=== PATIENT | male | born 1950 | race African-American/Black ===

== ENCOUNTER → 2017-07-03 | Day surgery (SDC) | payer OTHER ==
[2017-07-03 08:20] LABS: MPV 8.5 fL (7.6-11.3)
[2017-07-03 08:34] LABS: Protime INR 1.16
[2017-07-03 08:37] VITALS: BP 137/86; TEMP 97.8; O2SAT 96; BMI 33.3
[2017-07-03 10:38] LABS: Platelet Estimate ADEQ
== END ==
LOC: DS 07:49
PROVIDERS: ATTEND Orthopaedic Surgery Orthopaedic Surgery of the Spine
DX: M48.02 Spinal stenosis, cervical region (principal); I10 Essential (primary) hypertension; Z53.8 Procedure and treatment not carried out for other reasons
CPT/HCPCS: 36415; 85049; 85610; 85730

== ENCOUNTER 2017-07-09 08:30 | Day surgery (SDC) | payer OTHER ==
[2017-07-09 08:46] VITALS: BMI 33.3
--- NOTE | 2017-07-09 11:07 | RAD REPORT ---
EXAM DESCRIPTION: CT - Myelogram C Spine - 07/09/2017 10:46 am CLINICAL HISTORY: Spinal stenosis, upper extremity radiculopathy, patient reports numbness in the up per extremities COMPARISON: Myelogram images same date, cervical spine hand MRI examination August 2016 TECHNIQUE: Axial 2 millimeter thick images were obtained from the skullbase to the T1 level. Sagitta l and coronal reconstruction imaging generated and reviewed. FINDINGS: During the myelogram procedure, spinal stenosis changes were evident at L3-4 and L4-5 leve ls. Lumbar assessment is not complete on the cervical procedure. Cervical bodies are normal in height and alignment. No cervical fracture. No lytic, sclerotic or expa nsile bony destructive process. There are degenerative changes at the dens anterior arch C1 level. Th tolu do not cause any significant encroachment into the central canal. Mastoid air cells are clear. No tonsillar ectopia is seen. Patient has a congenitally small central canal. C2-3 level: No herniation or significant disc bulge identifiable. Midline canal diameter is 10-11 mm. No significant foraminal encroachment. C3-4 level: No herniation seen. Minimal endplate spurring changes are present. Midline thecal sac gildardo meter is 10 mm. Prominent facet joint degenerative change on the left causes mild bony foraminal encr oachment. C4-5 level: Posterior disc bulge and endplate spurring changes partially attenuate the anterior subar achnoid space. Midline diameter is 10 mm. Advanced left-sided facet joint degenerative changes presen t causing moderate foraminal stenosis. Right foraminal encroachment is mild. C5-6 level: No herniation of disc material. No significant disc bulge or endplate spurring. Canal is 11 mm in the midline. No significant degree of foraminal stenosis identified. Facet degenerative claros ges are minimal. C6-7 level: Mild disc bulge and endplate spurring changes are present. Midline canal is 10-11 mm. Exi t foramina do not appear to be stenotic. C7-T1 level: Left-sided facet degenerative changes are present. No significant foraminal stenosis. No central spinal stenosis. No expansile findings of the cord. There is a slightly flattened anterior contour in the mid and uppe r cervical spine at the levels of greatest spondylosis. IMPRESSION: Cervical spondylosis changes are present in this patient with a congenitally small centr al canal. No disc herniation is seen. The spondylosis changes cause borderline to mild canal stenosis at C3-4, C4-5 and C6-7. No critical foraminal stenosis. Foraminal encroachment changes are [id number] on the left at C3 -4, C4-5. Right foraminal encroachment is minimal at C4-5. Overall the examination is not substantially different from the August 2016 MRI study. Spinal stenosis is also suspected at L3-4 and L4-5, observed during the myelogram injection procedure . Lumbar spine is not fully assessed.
--- NOTE | 2017-07-09 11:26 | RAD REPORT ---
EXAM DESCRIPTION: RAD - Myelography C Spine - 07/09/2017 10:27 am CLINICAL HISTORY: Spinal stenosis, neck pain, upper extremity numbness and weakness. COMPARISON: Cervical spine imaging July 2016. TECHNIQUE: The patient presents for myelography and post-myelogram CT imaging of the cervical spine. The patient had no contraindicated allergy or medication history. The patient has been off of aspiri n therapy for least 1 week. The myelogram procedure, risks and alternatives were discussed with the patient in detail. After answ ering all questions, both oral and written consent were obtained. Time out procedure was performed. T he patient was placed in a slight oblique prone position on the fluoroscopic table. L3 access site wa s selected. Skin was prepped and draped in the usual sterile fashion. Skin and deeper tissues were an esthetized with 1% lidocaine. A 22 gauge needle was used to access the thecal sac. Intrathecal placem ent was confirmed approximately 9 mL of Isovue M300 contrast material was instilled into the thecal s ac. The needle was withdrawn and bandage placed to the puncture site. The patient was placed in a sup ine Trendelenburg position to allow slow transfer of contrast into the cervical spine. The patient wa s transferred to CT suite for cross-sectional imaging of the cervical spine. The patient tolerated procedure well without immediate complication. Post-procedure care and precauti on instructions were given to the patient. IMPRESSION: 1. Myelogram procedure was completed without complication. Post-procedure care and preca ution instructions were given to the patient. 2. Myelogram findings are incorporated into the CT cervical spine report.
[2017-07-09 14:18] VITALS: BP 137/95; TEMP 97.9; O2SAT 98
== END 2017-07-09 14:00 | disposition home or self-care (01) ==
LOC: DS 08:30
PROVIDERS: ATTEND Orthopaedic Surgery Orthopaedic Surgery of the Spine
DX: M48.02 Spinal stenosis, cervical region (principal)
CPT/HCPCS: 62302; 72126

== ENCOUNTER 2017-11-14 08:44 | Day surgery (SDC) | payer OTHER ==
--- NOTE | 2017-11-13 15:22 | RAD REPORT ---
EXAM DESCRIPTION: RAD - Chest Pa And Lat (2 Views) - 11/13/2017 3:01 pm CLINICAL HISTORY: preop<Reason For Exam>preop Preop chest, pending abscess removal from soft tissues, smoking history COMPARISON: Chest Pa And Lat (2 Views) dated 03/28/2017; Chest Single View dated 08/15/2015; CHEST SIN GLE VIEW dated 04/28/2014<Comparisons> TECHNIQUE: PA and lateral views of the chest were obtained. FINDINGS: The lungs are clear of an acute infiltrate, mass or failure finding. Lung markings are sim ilar to the comparison. Mediastinal and hilar regions show no interval change. Heart size is normal and central vasculature is within normal limits. No pleural effusion or pneumothorax seen. No acut e bony finding noted. No aortic abnormality. IMPRESSION: No acute cardiopulmonary process. No significant change from comparison.
--- NOTE | 2017-11-13 16:15 | EKG ---
Test Date: 2017-11-13 Test Time: 14:45:47 Wireworker: ANNA MEASUREMENT RESULTS: Intervals: Rate: 69 IL: 206 QRSD: 96 QT: 406 QTc: 435 [place]: P: 47 IL: 206 QRS: -15 T: 10 INTERPRETIVE STATEMENTS: Sinus rhythm with occasional premature ventricular complexes Otherwise normal ECG Compared to ECG 08/15/2015 09:15:23 Aberrant conduction of supraventricular beat(s) no longer present Myocardial infarct finding no longer present Electronically Signed On 11-13-17 16:14:17 CDT by Kosta Ruiz
[2017-11-13 16:25] LABS: Absolute Lymphocytes (CBC) 2.6 K/uL (0.7-4.9); Absolute Monocytes 0.7 K/uL (0.1-1.3); Absolute Neutrophil 4.3 K/uL (1.8-8.0); Eosinophils % 3.5 % (0-4.4); Hematocrit 45.5 % (39.6-49.0); MCH 29.6 pg (27.0-35.0); MCV 87.2 fL (80-100); MPV 8.2 fL (7.6-11.3); Monocytes % 8.6 % (3.3-12.3); RBC Red Blood Cell Count 5.22 M/uL (4.33-5.43)
[2017-11-13 16:53] LABS: BUN Blood Urea Nitrogen 15 mg/dL (7-18); Bicarbonate 28 mmol/L (21-32); Glucose Level 129 mg/dL (74-106); Potassium 4.2 mmol/L (3.5-5.1); Sodium Level 140 mmol/L (136-145)
[2017-11-14] MEDS ORDERED: NA CHLORIDE 0.9% 1,000 ML ONE (09:04)
[2017-11-14] MEDS ORDERED: CEFAZOLIN/SWI 1gm 1 GM/10 ML SYR ONE (09:04)
[2017-11-14] MEDS ORDERED: BUPIVACAINE 0.5% PF 10 ML VIAL ONE (09:08)
[2017-11-14] MEDS ORDERED: MIDAZOLAM HCL 2 MG/2 ML INJ ONE (09:37)
[2017-11-14] MEDS ORDERED: PROPOFOL 200 MG/20 ML VIAL IV ONE (09:37)
[2017-11-14] MEDS ORDERED: FENTANYL CITR 100 MCG/2 ML ONE (09:38)
[2017-11-14] MEDS ORDERED: ONDANSETRON HCL 40 MG/20 ML VIAL ONE (10:18)
[2017-11-14] MEDS ORDERED: MEPERIDINE HCL 50 MG/ML AMP ONE (10:54)
[2017-11-14] MEDS ORDERED: HYDROCODONE/APAP 7.5/325 MG TAB ONE (11:26)
[2017-11-14 12:46] VITALS: BP 115/71; TEMP 97.8; O2SAT 95
--- NOTE | 2017-11-14 21:46 | OP ---
Date of Procedure: 11/14/2017 Surgeon: Niles Rodriguez MD Preoperative Diagnosis: Abscess and cellulitis, left back. Postoperative Diagnosis: Abscess and cellulitis, left back. Procedure: Incision, drainage, and debridement of left back abscess. Estimated Blood Loss: Minimal. Specimen: Pus and cyst contents. Findings: Probably an abscess sebaceous cyst. Anesthesia: General. Complications: None. Disposition: The patient tolerated the procedure in stable condition and was taken to recovery in go od general condition. Procedure In Detail: The patient was brought to the OR and placed in supine position. General anest hesia was begun. Then, the patient was placed in the right lateral position, prepped and draped in t he usual sterile fashion. Marcaine 0.5% was infiltrated locally. Abscess itself was approximately 8 x 6 cm. A 4-cm incision was made. Subcutaneous tissue was divided. Pus under pressure was evacuat ed. Loculation was broken up, and then what appeared to be cyst contents were coming out. This was removed. Curette was used deep in the to the tissues to debride all of the cyst wall as much as safe ly could be. Wound was irrigated. Bleeding was controlled cautery. Wet-to-dry normal saline dressi ng change applied. The patient tolerated the procedure in stable condition and was taken to Recovery in good general condition. Discharge Note: The patient will go to Day Surgery and home when stable. Disposition: Home. Condition: Stable. Discharge Instructions: Resume home medications and diet. Activity as tolerated. No heavy lifting. Remove outer dressing in 2 days in a.m. Wet-to-dry normal saline dressing changes daily. Instruct ed the family how to do it. The patient has antibiotics. Tylenol No. 3 one tablet p.o. q.4 hours p. r.n. pain. Follow up in my office in 2 weeks. Call for appointment. . /MODL Voice ID: [id number] Report ID: [id number]
== END 2017-11-14 12:05 | disposition home or self-care (01) ==
LOC: OR 08:44
PROVIDERS: ATTEND Surgery
PROC: 0J970ZZ Drainage of Back Subcutaneous Tissue and Fascia, Open Approach (ICD-10-PCS; principal; 2017-11-14 10:00)
DX: L02.212 Cutaneous abscess of back [any part, except buttock and flank] (principal); I10 Essential (primary) hypertension; E11.9 Type 2 diabetes mellitus without complications; Z72.0 Tobacco use
CPT/HCPCS: 10060; 36415; 71046; 80048; 82962 ×2; 85025; 87070; 87075; 87205; 88304; 93005; J0690; J2175; J2250; J2405; J3010; J7030

== ENCOUNTER 2020-02-18 10:32 | Observation (INO) | payer OTHER ==
[2020-02-18 11:58] VITALS: BMI 32.8
[2020-02-18] MEDS ORDERED: ONDANSETRON 4 MG/2 ML VIAL IV PRN (11:59)
[2020-02-18] MEDS: NA CHLORIDE 0.9% 1,000 ML IV SCH ×2 (12:00→20:00)
--- NOTE | 2020-02-18 12:09 | ER ---
Nurse's Notes [facility] Name: Prem West Jr Age: 69 yrs Sex: Male : 1950 Arrival Date: 02/18/2020 Time: 10:[address] Private MD: Jerardo Means Diagnosis: Unspecified cirrhosis of liver;Dehydration;Acute Enteritis ED Course: 02/17 10:40 Patient arrived in ED. ag5 10:40 Jerardo Means MD is Private Physician. ag5 11:30 Mohini Alexis, GABY is Primary Nurse. rb3 12:03 Jerardo Means MD is Hospitalizing Provider. aa5 Administered Medications: No medications were administered Outcome: 12:07 Decision to Hospitalize by Provider. aa5 22:15 Patient left the ED. sg Signatures: Chas Mustafa RN RN sg Ivana Henderson RN RN aa5 Paolo Martin ag Mohini Alexis, RN RN rb3
[2020-02-18] MEDS ORDERED: NA CHLORIDE 0.9% 1,000 ML ONE ×2 (13:23→22:12)
[2020-02-18 13:42] LABS: Urine Blood 2+ (NEG); Urine Glucose NEGATIVE (NEG); Urine Protein 2+ (NEG); Urine Specific Gravity >1.030 (1.005-1.030); Urine pH 5.5 (5.0-7.0)
[2020-02-18 14:21] LABS: Protime INR 1.31
[2020-02-18 14:22] LABS: Absolute Lymphocytes (CBC) 1.1 K/uL (0.7-4.9); Basophils % 1.2 % (0-1.3); Hematocrit 37.8 % (39.6-49.0); Lymphocytes % 16.9 % (15.3-44.8); MPV 7.5 fL (7.6-11.3); RBC Red Blood Cell Count 4.35 M/uL (4.33-5.43)
[2020-02-18 14:27] LABS: Albumin 2.8 g/dL (3.4-5.0); Bilirubin Direct 0.6 mg/dL (0-0.2); Bilirubin Total 1.1 mg/dL (0.2-1.0); Protein, Total 7.3 g/dL (6.4-8.2)
[2020-02-18] MEDS: MORPHINE 2 MG/ML SYR IV PRN (18:28)
[2020-02-18] MEDS ORDERED: MORPHINE 2 MG/ML SYR ONE (18:31)
[2020-02-18] MEDS ORDERED: NA CHLORIDE 0.9% 250 ML IV PRN (20:54)
[2020-02-18] MEDS: METOPROLOL TAR 50 MG TAB PO SCH (21:00)
[2020-02-18 21:08] LABS: Urine Appearance TURBID; Urine Blood 2+ (NEG); Urine Color DK YELLOW; Urine Glucose NEGATIVE (NEG); Urine Protein 2+ (NEG); Urine Specific Gravity >=1.030 (1.005-1.030); Urine Urobilinogen 0.2 mg/dL (0.2-1.0); Urine pH 5.5 (5.0-7.0)
[2020-02-18 21:12] LABS: Urine Bilirubin NEGATIVE (NEG)
[2020-02-18 21:23] LABS: Urine Bacteria >50 /HPF (NONE SEEN)
[2020-02-18 21:24] LABS: Urine Mucus 2+ /HPF (NONE SEEN)
[2020-02-18 21:28] LABS: Urine Microscopic Reflex NO UMIC
[2020-02-18] MEDS ORDERED: METOPROLOL TAR 50 MG TAB ONE (22:12)
[2020-02-19] MEDS ORDERED: D50W 25 GM/50 ML SYRINGE IV PRN (01:07)
[2020-02-19] MEDS ORDERED: GLUCAGON 1 MG/VIAL IM PRN (01:07)
[2020-02-19] MEDS: NA CHLORIDE 0.9% 1,000 ML IV SCH ×4 (04:00→15:04)
[2020-02-19 05:56] LABS: Basophils % 0.9 % (0-1.3); Hematocrit 35.3 % (39.6-49.0); Lymphocytes % 16.3 % (15.3-44.8); MPV 7.4 fL (7.6-11.3); RBC Red Blood Cell Count 4.09 M/uL (4.33-5.43)
[2020-02-19 06:20] LABS: Albumin 2.6 g/dL (3.4-5.0); Bilirubin Direct 0.7 mg/dL (0-0.2); Bilirubin Total 1.3 mg/dL (0.2-1.0); Potassium 4.3 mmol/L (3.5-5.1); Protein, Total 6.9 g/dL (6.4-8.2)
[2020-02-19] MEDS: INSULIN -REGULAR HUMAN 50 UNIT/0.5 ML ML SQ SCH ×4 (07:30→21:00)
[2020-02-19 08:31] LABS: Blood Morphology Comment NOT SEEN (NOT SEEN); Platelet Estimate DECR; Platelets, Giant FEW; White Blood Cell Scan OK (OK)
[2020-02-19] MEDS: METOPROLOL TAR 50 MG TAB PO SCH ×2 (08:51→21:44)
[2020-02-19 11:50] LABS: C.diff Antigen/Toxin Ag neg : Tox neg (NEG : NEG)
--- NOTE | 2020-02-19 13:40 | EKG ---
Test Date: 2020-02-18 Test Time: 13:40:28 Cokeman: APOLINAR MEASUREMENT RESULTS: Intervals: Rate: 102 [place]: 160 QRSD: 92 QT: 350 QTc: 456 [place]: P: 42 [place]: 160 QRS: -25 T: 58 INTERPRETIVE STATEMENTS: Sinus tachycardia with occasional premature ventricular complexes Otherwise normal ECG Compared to ECG 11/13/2017 14:45:47 Sinus rhythm no longer present Electronically Signed On 02-19-20 13:37:10 PROCESS SAFETY MANAGEMENT ENGINEER by Kosta Ruiz
[2020-02-19] MEDS ORDERED: ENSURE HIGH PROTEIN 237 ML CAN PO PRN (13:51)
--- NOTE | 2020-02-19 14:40 | RAD REPORT ---
EXAM DESCRIPTION: MRI - Mri Abdomen W/Wo Cont - 02/18/2020 9:25 pm CLINICAL HISTORY: Liver Cirrhosis, acute enteritis, abdominal pain, abnormal CT and ultrasound studi es COMPARISON: No comparisons TECHNIQUE: Multiplanar imaging of the liver and upper abdomen performed using T1 weighted, T2 haste fat saturation, T2 imaging, T1 inphase/out of phase imaging and dynamically enhanced postcontrast T1 fat saturation sequencing. 10 minutes and 20 minutes delayed images were obtained. A 20 milliliter Mu ltiHance contrast volume was utilized. FINDINGS: The liver is again noted to be grossly abnormal. The enlarged liver shows numerous variabl y sized rounded hyperintense T2 masses throughout the left lobe and anterior right lobe. Less defined hyperintense T2 signal is scattered throughout the posterior right lobe. The numerous rounded nodula r masses are hypointense on T1 imaging. The entire posterior portion of the right lobe shows diminish ed T1 signal compared to the anterior right lobe and left lobe. In the posteroinferior right lobe the re is a 4 cm area of ill-defined heterogeneous T2 signal and hyperintense T1 signal. T1 signal patter n does not change on fat suppressed sequencing. Similarly, the T1 pattern shows no significant change on the inphase/out of phase sequencing. Post-contrast imaging shows normal enhancement of the background liver parenchyma in the left lobe/an terior right lower lobe regions. The multiple small rounded nodules within this portion of the liver show minimal or low level enhancement compared to the surrounding parenchyma. The posterior right lob e on post-contrast imaging shows a confluence of rounded hypointense masses that show minimal central enhancement. There is enhancing septations or stranding between the multiple confluent nodules. The 4 cm inferior right lobe focus shows no central enhancement and is probably cystic or necrotic tissue . There is thrombosis evident in the small portal vein radicles within the posterior right lobe. No focal splenic abnormality. The pancreas shows no suspicious finding. No biliary tree dilatation. T he gallbladder is absent. The multiple benign renal cysts are present. No acute renal or adrenal abno rmality. No ascites or bulky lymphadenopathy. IMPRESSION: 1. Grossly abnormal liver showing numerous rounded masses throughout the liver with a la rge confluence of masses filling the posterior right lobe. Areas of portal vein thrombosis are seen i n the posterior right lobe. 2. Collective findings are suspicious for multifocal hepatocellular carcinoma.
[2020-02-19] MEDS: MORPHINE 2 MG/ML SYR IV PRN (18:28)
[2020-02-19 22:54] LABS: Urine Appearance CLOUDY; Urine Bilirubin NEGATIVE (NEG); Urine Blood 1+ (NEG); Urine Color DK YELLOW; Urine Glucose NEGATIVE (NEG); Urine Protein 1+ (NEG); Urine Specific Gravity 1.025 (1.005-1.030); Urine Urobilinogen 0.2 mg/dL (0.2-1.0); Urine pH 5.5 (5.0-7.0)
[2020-02-19 23:28] LABS: Urine Amorphous Sediment 1+ /HPF (NONE SEEN); Urine Bacteria >50 /HPF (NONE SEEN); Urine Mucus 3+ /HPF (NONE SEEN)
[2020-02-19 23:29] LABS: Urine Coarse Granular Casts FEW /LPF (NONE SEEN)
--- NOTE | 2020-02-20 00:02 | CON ---
Date of Consultation: 02/19/2020 Reason For Consultation: Dehydration, enteritis, change in bowel, diarrhea, and abnormal liver with possible multifocal hepatocellular carcinoma on MRI imaging. History Of Present Illness: The patient is a 69-year-old male from [place], who presented from primary care physician's office with dehydration, enteritis, change in bowel habits, diarrhea. On workup, he has imaging including ultrasound and CT that revealed abnormality in the [facility] er. There was nondescript subsequent MRI imaging, revealed multifocal hepatocellular carcinoma that is probable. The patient reports losing 15 pounds over the past month without trying. His was concerned and have this evaluated as well. In addition, he notes right upper and right lower quadran t pain has been present recently. He denies any fevers, chills, night sweats, constipation, melena, hematochezia, hematemesis, coffee-grounds emesis, chest pain, short of breath, seizure, or syncope. Past Medical History: Significant for diabetes, hypertension, new diagnosis of cirrhosis of the live r that appears with imaging. Medications: Here in the hospital, he is on glucagon, insulin, Lopressor, morphine, Ensure high-prot ein, Zofran, and sodium chloride IV fluids. Allergies: NKDA. Physical Examination: Vital Signs: The patient is 5 feet 11 inches, 235 pounds, BMI of 32.8 kg/m2. General: He is a mildly obese male, lying in bed, no acute distress. HEENT: Normocephalic, atraumatic. Anicteric. Pupils equal, round, and reactive to light. Orophary nx clear. Neck: Supple. No masses. Respirations: Clear to auscultation bilaterally. Cardiac: Regular rate and rhythm. Gastrointestinal: Positive bowel sounds. Soft, nondistended. Pain in the right upper and right low er quadrant area. No peritoneal Can signs. There was some slight guarding, however. Mildly obes e. Extremities: No clubbing, cyanosis, or edema. 2+ pulses. Neurologic: Alert and oriented x3. Grossly nonfocal. 5/5 motor strength. Sensation intact to ligh t touch. Laboratory Data: The patient has a white count today of 6.0, hemoglobin 11.8 down from 12.3, hematoc rit 35, MCV of 86, platelet count of 106 down from 141 yesterday, polys of 69%, lymphocytes 16%, mono cytes 11%, eosinophils 2%. PT of 15.4, INR of 1.31, PTT of 26.6. Sodium 141, potassium 4.3, chlorid e 111, bicarb 22, BUN of 22, creatinine of 1.45, glucose 97, total bilirubin 1.3, direct bilirubin 0. 7, AST of 399, ALT of 38, alkaline phosphatase 86, total protein 6.9, albumin 3.6. Lipase mildly benson vated at 272, up from 658 yesterday. Urinalysis revealed a 1+ ketones, 2+ blood, positive nitrite, t race leukocyte esterase, less than 5 squamous epithelial cells, 20-50 white blood cells, 10-20 RBCs, 2+ protein. C diff toxin negative. Stool occult blood was negative and no white blood cells seen. CT abdomen and pelvis as well as ultrasound was done and there were nonspecific abnormalities in the liver. CT revealed advanced cirrhotic changes present with heterogeneous attenuation. There was het erogeneity in the inferior right lobe with mixed pattern, cirrhotic parenchyma, fibrosis, regenerativ e nodules, more pronounced originated in inferior right lobe, concerning for possible hepatocellular carcinoma, small amount of ascites, decompressed colon with circumferential thickening. MRI of abdom en reveals grossly abnormal liver showing numerous rounded masses throughout the liver with a large c onfluence of masses in the posterior right lobe, appearance of portal vein thrombosis seen in the pos terior right lobe, collective findings suspicious for multifocal hepatocellular carcinoma or hepatoma . Impression: 1.Possible multifocal hepatocellular carcinoma/hepatoma, positive MRI finding in the inferior right lobe. The patient has lost 15 pounds over the past month with right upper and lower abdominal pain, but he denies any fevers, chills, night sweats. 2.Admission with dehydration, enteritis, change in bowel habits, diarrhea. Stool studies have been negative today. 3.History of diabetes, hypertension, and new diagnosis of cirrhosis of the liver. Recommendations: 1.Check alpha-fetoprotein level. 2.We will consider tertiary center transfer for management of probable hepatocellular carcinoma. Al so will probably need to review CT and MR imaging at a tertiary center, possible reimaging there. We will try to avoid liver biopsy because this may track the hepatocellular carcinoma. If it is indeed present, it would be better to make a diagnosis of alpha-fetoprotein and/or imaging and refer to [facility] for this if surgery is needed. 3.Continue IV fluids. 4.ADA diet. 5.GI Clinic followup. ABHIJEET/CHAMP Voice ID: [id number] Report ID: [id number]
[2020-02-20 05:40] LABS: Basophils % 0.9 % (0-1.3); Hematocrit 35.3 % (39.6-49.0); Lymphocytes % 16.4 % (15.3-44.8); MPV 7.4 fL (7.6-11.3); RBC Red Blood Cell Count 4.05 M/uL (4.33-5.43)
[2020-02-20 06:04] LABS: Potassium 4.2 mmol/L (3.5-5.1)
[2020-02-20] MEDS: INSULIN -REGULAR HUMAN 50 UNIT/0.5 ML ML SQ SCH ×2 (07:30→11:30)
[2020-02-20] MEDS: METOPROLOL TAR 50 MG TAB PO SCH (08:15)
[2020-02-20 08:31] LABS: Albumin 2.4 g/dL (3.4-5.0); Bilirubin Direct 0.6 mg/dL (0-0.2); Bilirubin Total 1.1 mg/dL (0.2-1.0); Protein, Total 6.9 g/dL (6.4-8.2)
--- NOTE | 2020-02-20 08:40 | RAD REPORT ---
EXAM DESCRIPTION: RAD - Shoulder Left 2 View - 02/20/2020 8:13 am CLINICAL HISTORY: Left shoulder pain FINDINGS: No fracture or dislocation is seen. 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 Subchondral cysts are present within the ximena l head
[2020-02-20 11:01] VITALS: O2SAT 95
[2020-02-20 12:58] VITALS: BP 147/76; TEMP 97.8
--- NOTE | 2020-02-20 15:23 | PN ---
Date of Progress Note: 02/20/2020 The patient states he feels somewhat better today. He is holding solids down, tolerating fluids, and urinating without problems. He had no further diarrhea. Still has some abdominal tenderness and pr obable mass in the right upper quadrant. He will be discharged to continue on his hypertension medic ation as he has in the past. Continue to hold his diabetic medication with a plan to send him to a [facility] in [place] early next week. HR/MODL Voice ID: [id number] Report ID: [id number]
--- NOTE | 2020-02-21 03:31 | HP ---
Date of Admission: 02/18/2020 Entrance Complaints: Nausea, vomiting, diarrhea, weight loss, general malaise. History Of Present Illness: The patient has had the above-outlined symptoms for the past couple of w eeks, associated with this, there has been some right upper quadrant discomfort. He says, he has not had any fever or chills, but he definitely anorectic and thinks he has lost approximately 10 pounds over this period of time. He says, when he eats, it comes up right away and the diarrhea has not bee n bloody or mucus as far as he can tell. The patient was placed on antibiotics and symptomatic treat ment as an outpatient. However, his condition continued to deteriorate. He rapidly became dehydrate d over the past few days. It was felt, he would do much better with some IV fluids and further evalu ation. He was therefore admitted. Past History: Patient has history of NIDDM with good control. He states for the past few weeks, he did not measure his blood sugar medication coincides with the present illness, history of hypertensio n, relatively good controlled on various medications, was seen by Cardiology. Social History: The patient does socially drink and states when he was quite a bit younger, he did d rink a lot. He quit smoking, cold turkey a couple of years ago. Family History: Alcoholism as well as CAD. Physical Examination: GENERAL: He is rather uncomfortable appearing elderly male with stable vital signs. HEAD AND NECK: Normocephalic. Pupils equal and reactive to light accommodation. Fundi negative. NECK: Trachea midline. Thyroid not palpable. ENT: Negative. CHEST: Clear to P and A. CARDIOVASCULAR: PMI in the midclavicular line. Heart sounds normal. Peripheral pulses are present and equal bilaterally. ABDOMEN: Slight tenderness in right upper quadrant, questionable fullness in the area. No guarding, rebound, tenderness, or rigidity. Bowel sounds hypoactive. EXTREMITIES: Moderately dehydrated. Good tone and movement bilaterally. Reflexes physiologic. RECTAL: Deferred. Impression: 1.Dehydration and acute enteritis, abdominal pain, unknown etiology. 2.Hypertension, controlled. 3.Trd-stcpsju-rkrcvhjpv diabetes mellitus, controlled. Plan: Patient will be admitted, placed on IV fluids and scheduled for an MRI. Depending on the resu lts, further evaluation and treatment may be indicated. GI consult will also be obtained. In view of the continues symptoms, a CT was done of the abdomen and it did show some cirrhosis, multi nodular, questionable etiology for a growth. HR/MODL Voice ID: [id number]
--- NOTE | 2020-02-21 03:34 | PN ---
Date of Progress Note: 02/19/2020 The patient states, he feels somewhat better after the IV fluids. He is now urinating better and mor e frequently and he states his urine is dark. Still has some right upper quadrant discomfort. Lipas e was also elevated as well as SGOT. Awaiting an MRI. Once the MRI will be taken later today, he can be started on fluids and progressed to a tolerated diet and perhaps be discharged in next day or so. HR/MODL Voice ID: [id number] Report ID: [id number]
[2020-02-23 18:29] LABS: HBsAG Nonreactive (Nonreactive)
[2020-02-23 23:00] LABS: Lactoferrin, Stool <30.0 mcg/mL (<30.0)
[2020-02-25 20:17] LABS: Hep C Virus RNA (PCR)log 5.42 log IU/mL
== END 2020-02-20 14:31 | disposition home or self-care (01) ==
LOC: ER 10:32 → ERHOLD 10:50 → 2ND 22:08
PROVIDERS: ADMIT Family Medicine; ATTEND Family Medicine
DX: K52.9 Noninfective gastroenteritis and colitis, unspecified (principal); E86.0 Dehydration; I10 Essential (primary) hypertension; Z20.828 Contact with and (suspected) exposure to other viral communicable diseases; R93.2 Abnormal findings on diagnostic imaging of liver and biliary tract; E11.9 Type 2 diabetes mellitus without complications; K74.60 Unspecified cirrhosis of liver; E66.9 Obesity, unspecified; Z68.32 Body mass index [BMI] 32.0-32.9, adult; Z87.891 Personal history of nicotine dependence
CPT/HCPCS: 93005; 87088; 87045; 85025 ×3; 81001; 87086; 80048 ×2; 36415 ×3; 82150; 89055; 87177; 82274; 85610; 82947 ×8; 80076 ×3; 87046; 85730; 87209; 87324; 83690 ×3; 83631; 84145; 82105; 87449; 82705; 80074; 73030; U0002; J2270 ×2; G0378 ×4; J7030 ×4; G0379; 81003; 81015; 87493; 87522

== ENCOUNTER 2020-03-14 18:18 | Emergency (ER) | payer OTHER ==
--- OUTSIDE RECORDS SUMMARY | 2020-03-14 18:20 | XMS REPORT | Clinical Summary ---
:1950 Demographics Phone Unavailable Preferred Language Unknown Marital Status Unknown L[employer] Day Affiliation Unknown Race Unknown Ethnic Group Unknown Author Organization [facility] Address [address] [place] [address] Care Team Providers Name Role Phone Unavailable Primary Care Provider Unavailable Allergies Not on File Medications Not on file Active Problems Not on file Encounters Date Type Specialty Care Team Description 02/24/2020 Hospital Encounter Radiology Arthur Kulkarni MD Arrived after 03/14/2019 Social History Tobacco Use Types Packs/Day Years Used Date Never Assessed Sex Assigned at Date Recorded Not on file Last Filed Vital Signs Not on file Plan of Treatment Health Maintenance Due Date Last Done Comments COVID-19 VACCINE (#1) 1966 COLONOSCOPY SCREENING 2000 SHINGLES VACCINES (#1) 2000 65+ PNEUMOCOCCAL VACCINE (1 of 1 - PPSV23) 2015 INFLUENZA VACCINE 10/17/2019 Procedures Procedure Name Priority Date/Time Associated Diagnosis Comme nts MRI ABD/PELVIC Routine 02/18/2020 8:44 PM Result s for this EXTERNAL STUDY FLORIST MANAGER procedure are in the results section. after 03/14/2019 Results MRI Abd/Pelvic External Study (02/18/2020 8:44 PM FLORIST MANAGER) Specimen Narrative Performed At This exam was not acquired at a [facility] facility and has not been [facility] interpreted by a [facility] Provider. T he exam was imported into our imaging system. Performing Organization Address City/State/ZIP Code Phon e Number [facility] [address] [place] [address] after 03/14/2019 Advance Directives For more information, please contact: [phone] Type Date Recorded Patient Literacy Tutor Explanati on Advance Directives, Living Will and Medical Power of Equity Structurer
--- OUTSIDE RECORDS SUMMARY | 2020-03-14 18:20 | XMS REPORT | Continuity of Care Document ---
:1950 Author Organization [facility] t Address [address] [place] [address] [address]. [address] [place] [address] Care Team Providers Name Role Phone Kraig GRIFFIN, Francisco Attending Clinician Unavailable Shad WRIGHT, S. Attending Clinician Problems This patient has no known problems. Allergies, Adverse Reactions, Alerts This patient has no known allergies or adverse reactions. Social History Social Habit Start Date Stop Date Quantity Comments Source Sex Assigned At MD Matias Medications This patient has no known medications. Procedures Procedure Date / Time Performed Performing Clinician Sourc e MRI ABD/PELVIC EXTERNAL 2020-02-18 20:44:00 Arthur Kulkarni STUDY Plan of Care Planned Activity Planned Date Details Comments Source Future Scheduled 2019-10-17 INFLUENZA VACCINE [place] [employer] [facility] 00:00:00 [code = INFLUENZA VACCINE] Future Scheduled 2015 65+ PNEUMOCOCCAL [place] [employer] [facility] 00:00:00 VACCINE (1 of 1 - PPSV23) [code = 65+ PNEUMOCOCCAL VACCINE (1 of 1 - PPSV23)] Future Scheduled 2000 COLONOSCOPY SCREENING Chance padron [employer] Test 00:00:00 [code = COLONOSCOPY SCREENING] Future Scheduled 2000 SHINGLES VACCINES (#1) rima [employer] Test 00:00:00 [code = SHINGLES VACCINES (#1)] Future Scheduled 1966 COVID-19 VACCINE (#1) Chance padron [employer] Test 00:00:00 [code = COVID-19 VACCINE (#1)] Encounters Start End Encounter Admission Attending Care Care Encounter Source Date/Time Date/Time Type Type Clinicians Facility Department ID 2020-02-24 2020-02-24 Outpatient SHAD [facility] [id number] [address] [place] 00:00:00 00:00:00 ARTHUR [place] Method i st Results Test Description Test Time Test Comments Results Result [facility] e Comments MRI Abd/Pelvic 2020-02-24 This exam was not Saúl ston External Study 12:42:02 acquired at a [facility] facility and has not been interpreted by a [employer] Provider. The exam was imported into our imaging system.
[2020-03-14 20:14] LABS: Protime INR 1.29
[2020-03-14 20:15] LABS: Absolute Lymphocytes (CBC) 3.6 K/uL (0.7-4.9); Basophils % 0.4 % (0-1.3); Hematocrit 25.3 % (39.6-49.0); Lymphocytes % 15.3 % (15.3-44.8); MPV 8.3 fL (7.6-11.3)
[2020-03-14] MEDS ORDERED: NA CHLORIDE 0.9% 1,000 ML ONE (20:18)
[2020-03-14] MEDS ORDERED: THIAMINE 200 MG/2 ML INJ ONE (20:18)
[2020-03-14] MEDS ORDERED: FAMOTIDINE 20 MG/2 ML VIAL IV ONE (20:22)
[2020-03-14 20:37] LABS: Albumin 2.5 g/dL (3.4-5.0); Bilirubin Direct 1.6 mg/dL (0-0.2); Magnesium 3.1 mg/dL (1.8-2.4); Potassium 4.7 mmol/L (3.5-5.1); Protein, Total 6.6 g/dL (6.4-8.2); Troponin (Emerg Dept Use Only) 0.06 ng/mL (0.0-0.045)
--- NOTE | 2020-03-14 20:45 | RAD REPORT ---
EXAM DESCRIPTION: CT - Chest Abd Pelvis Wo Con - 03/14/2020 8:19 pm CLINICAL HISTORY: Abdominal distention;Cough COMPARISON: Abdomen Pelvis W Contrast dated 02/17/2020 TECHNIQUE: Axial 5 millimeter thick images of the chest, abdomen and pelvis were obtained without IV contrast. Oral contrast was administered. All CT scans are performed using dose optimization technique as appropriate and may include automated exposure control or mA/KV adjustment according to patient size. FINDINGS: Patchy posterior gutter opacification is favored to be atelectasis over pneumonia. No cavitation or n ew mass component. Small noncalcified nodule medial right base has not changed. No pneumothorax or pl eural effusion. No chest wall mass or abnormal axillary lymphadenopathy seen. Mediastinal and hilar regions show no mass or lymphadenopathy. No significant cardiac finding. Pronounced hepatomegaly is present with heterogeneous attenuation of the hepatic parenchyma. Several low-density masses are present poorly defined and difficult to measure. No substantial change from De ber 2nd comparison study. Spleen and pancreas show no suspicious findings. No biliary tree dilatation. Gallbladder appears be a bsent. No hydronephrosis or suspicious renal mass. Low-density renal masses match up with cysts on prior wen ging. No perinephric stranding. No adrenal abnormalities. Contracted urinary bladder shows no wall th ickening or edema findings. No dilated bowel loops or focal bowel wall thickening. No acute GI process identified. Trace amounts of ascites noted. No free air or pneumatosis. No mass, abscess or bulky lymphadenopathy identifiable. Disc and bone degenerative changes are present. IMPRESSION: CT imaging shows posterior right base opacification more likely atelectasis than pneumon ia. No other significant CT chest finding. Pronounced hepatomegaly with heterogeneous attenuation and probable multiple liver mass lesions poorl y demarcated on this noncontrast study. No hydronephrosis or acute finding. Isodense masses and pyelonephritis are not excluded. No acute GI process seen. There is a minimal amount of ascites and stranding in the peritoneal fat. N o abscess or emergent finding.
[2020-03-14] MEDS ORDERED: METRONIDAZOLE 500mg IVPB 500 MG/100 ML BAG IV ONE (20:52)
--- NOTE | 2020-03-14 20:59 | RAD REPORT ---
EXAM DESCRIPTION: CT - Head Brain Wo Cont - 03/14/2020 8:19 pm CLINICAL HISTORY: CONFUSED, transient alteration of awareness COMPARISON: Facial Bones W Con Mpr dated 08/15/2015 TECHNIQUE: Axial 5 mm thick images of the head were obtained without IV contrast. All CT scans are performed using dose optimization technique as appropriate and may include automated exposure control or mA/KV adjustment according to patient size. FINDINGS: No intracranial hemorrhage, mass, edema or shift of mid-line structures. No acute infarcti on changes seen. No abnormal extra-axial fluid collections. Mild atrophy and mild chronic ischemic ch anges are present. Ventricles are in proportion to any volume loss. Arterial and physiologic calcific ations are present. Mastoid air cells and visualized portions of the paranasal sinuses are clear. No acute bony findings. Focally prominent soft tissue seen posterior right occipital scalp region commonly seen with scalp he matoma. Correlation is needed with any fall history. IMPRESSION: Mild atrophy and chronic ischemic change with no acute intracranial finding. Thickened soft tissues right occipital scalp soft tissues could be hematoma. This needs correlation w ith any fall history.
--- NOTE | 2020-03-14 21:11 | EDPHYS ---
Physician Documentation [facility] Name: Prem West Jr Age: 69 yrs Sex: Male : 1950 Arrival Date: 03/14/2020 Time: 18:21 Bed 15 Private MD: ED Physician Terrell Matias HPI: 03/14 19:52 This 69 yrs old Black Male presents to ER via Wheelchair with complaints of Abnormal ashley Lab Results, Sent By Clary. 19:52 The patient presents with abdominal pain in the upper abdomen, in the lower abdomen. ashley Onset: The symptoms/episode began/occurred 3 day(s) ago. weak, progressive abd pain, new diagnosis of liver cancer. Onset: The symptoms/episode began/occurred 3 day(s) ago. The symptoms do not radiate. Associated signs and symptoms: Pertinent positives: nausea and vomiting, anorexia, headache. Severity of pain: At its worst the pain was moderate in the emergency department the pain is unchanged. 19:54 The patient presents with decreased responsiveness. Possible causes: CVA or TIA, head ashley injury, low blood sugar, sepsis. Associated signs and symptoms: Pertinent positives: abdominal pain, confusion, dizziness, lightheadedness. Current symptoms: In the emergency department the patient's symptoms are unchanged from the initial presentation, despite home interventions. Historical: - Allergies: 18:47 No Known Allergies; ll1 - PMHx: 18:47 Diabetes - NIDDM; Hypertension; liver CA; ll1 - PSHx: 18:47 None; ll1 - Immunization history:: Flu vaccine is up to date. - Social history:: Smoking status: Patient/guardian denies using tobacco, the patient reports quitting approximately 1 years ago. - Family history:: not pertinent. ROS: 19:54 Constitutional: Negative for fever, chills, and weight loss, Eyes: Negative for injury, ashley pain, redness, and discharge, ENT: Negative for injury, pain, and discharge, Neck: Negative for injury, pain, and swelling, Cardiovascular: Negative for chest pain, palpitations, and edema, Respiratory: Negative for shortness of breath, cough, wheezing, and pleuritic chest pain, Back: Negative for injury and pain, : Negative for injury, bleeding, discharge, and swelling, MS/Extremity: Negative for injury and deformity, Skin: Negative for injury, rash, and discoloration, Psych: Negative for depression, anxiety, suicide ideation, homicidal ideation, and hallucinations, Allergy/Immunology: Negative for hives, rash, and allergies, Endocrine: Negative for neck swelling, polydipsia, polyuria, polyphagia, and marked weight changes, Hematologic/Lymphatic: Negative for swollen nodes, abnormal bleeding, and unusual bruising. 19:54 Abdomen/GI: Positive for abdominal pain, abdominal cramps, abdominal distension, of the right upper quadrant, left upper quadrant, right lower quadrant and left lower quadrant. 19:54 Skin: Positive for jaundice, pallor. Exam: 19:55 Constitutional: This is a well developed, well nourished patient who is awake, alert, ashley and in no acute distress. Head/Face: Normocephalic, atraumatic. Eyes: Pupils equal round and reactive to light, extra-ocular motions intact. Lids and lashes normal. Conjunctiva and sclera are non-icteric and not injected. Cornea within normal limits. Periorbital areas with no swelling, redness, or edema. ENT: Nares patent. No nasal discharge, no septal abnormalities noted. Tympanic membranes are normal and external auditory canals are clear. Oropharynx with no redness, swelling, or masses, exudates, or evidence of obstruction, uvula midline. Mucous membranes moist. Neck: Trachea midline, no thyromegaly or masses palpated, and no cervical lymphadenopathy. Supple, full range of motion without nuchal rigidity, or vertebral point tenderness. No Meningismus. Chest/axilla: Normal chest wall appearance and motion. Nontender with no deformity. No lesions are appreciated. Respiratory: Lungs have equal breath sounds bilaterally, clear to auscultation and percussion. No rales, rhonchi or wheezes noted. No increased work of breathing, no retractions or nasal flaring. Back: No spinal tenderness. No costovertebral tenderness. Full range of motion. Male : Normal genitalia with no discharge or lesions. MS/ Extremity: Pulses equal, no cyanosis. Neurovascular intact. Full, normal range of motion. Psych: Awake, alert, with orientation to person, place and time. Behavior, mood, and affect are within normal limits. 19:55 Cardiovascular: Rate: tachycardic, Rhythm: regular, Pulses: Pulses are 4+ in bilateral radial, brachial, femoral, popliteal, posterior tibial and and dorsalis pedis arteries.. Heart sounds: normal, Edema: is not appreciated, JVD: is noted on the right, to 2 cm. 19:55 Respiratory: Exam negative for 19:55 Abdomen/GI: Inspection: distension, Bowel sounds: normal, Palpation: moderate abdominal tenderness, in the right lower quadrant and left lower quadrant, Liver: no appreciated palpable abnormalities, Hernia: not appreciated. 21:10 ECG was reviewed by the Attending Physician. ashley Vital Signs: 18:47 BP 110 / 46; Pulse 111; Resp 18; Temp 98.4; Pulse Ox 100% ; Weight 107.05 kg; Height 5 ll1 ft. 7 in. (170.18 cm); Pain 8/10; 21:00 BP 111 / 42; Pulse 117; Resp 16; Pulse Ox 100% on R/A; jb4 22:00 BP 115 / 53; Pulse 108; Resp 14; Pulse Ox 100% on R/A; jb4 23:00 BP 133 / 56; Pulse 115; Resp 15; Pulse Ox 98% on R/A; jb4 03/15 00:00 BP 113 / 49; Pulse 106; Resp 18; Pulse Ox 95% on R/A; jb4 01:00 BP 127 / 55; Pulse 113; Resp 16; Pulse Ox 95% on R/A; jb4 02:00 BP 127 / 58; Pulse 110; Resp 16; Pulse Ox 96% on R/A; jb4 03/14 18:47 Body Mass Index 36.96 (107.05 kg, 170.18 cm) ll1 MDM: 03/14 19:09 Patient medically screened. ashley 19:57 Differential Diagnosis altered mental status, sepsis. Differential Diagnosis: CVA, ashley electrolyte abnormality, hypoglycemia, intracranial bleed, pneumonia, sepsis, UTI, volume depletion. Differential diagnosis: bowel obstruction, cholecystitis, Cholelithiasis, diverticulitis, gastritis, non-specific abd pain, pancreatitis, Pyelonephritis, Ureterolithiasis. Data reviewed: vital signs, nurses notes, lab test result(s), EKG, radiologic studies, CT scan, plain films. Data interpreted: school lunch monitor: rate is 111 beats/min, rhythm is regular, Pulse oximetry: on room air is 100 %. Test interpretation: by ED physician or midlevel provider: ECG, plain radiologic studies. Counseling: I had a detailed discussion with the patient and/or guardian regarding: the historical points, exam findings, and any diagnostic results supporting the discharge/admit diagnosis, the presence of at least one elevated blood pressure reading (>120/80) during this emergency department visit, lab results, radiology results, the need to transfer to another facility, for higher level of care, [facility] does not immediately have the required specialist. 03/14 19:45 Order name: Basic Metabolic Panel; Complete Time: 21:04 [facility] 03/14 19:45 Order name: CBC with Diff; Complete Time: 22:14 [facility] 03/14 19:45 Order name: LFT's; Complete Time: 21:04 [facility] 03/14 19:45 Order name: Magnesium; Complete Time: 21:04 [facility] 03/14 19:45 Order name: NT PRO-BNP; Complete Time: 21:04 [facility] 03/14 19:45 Order name: PT-INR; Complete Time: 21:04 [facility] 03/14 19:45 Order name: Troponin (emerg Dept Use Only); Complete Time: 21:04 [facility] 03/14 19:45 Order name: Lipase; Complete Time: 21:04 [facility] 03/14 19:45 Order name: AMMONIA; Complete Time: 21:04 [facility] 03/14 19:45 Order name: Urine Culture [facility] 03/14 19:45 Order name: Type And Screen; Complete Time: 22:24 [facility] 03/14 19:45 Order name: Lactate; Complete Time: 21:04 [facility] 03/14 19:45 Order name: Blood Culture Adult (2) [facility] 03/14 19:45 Order name: XRAY Chest (1 view) [facility] 03/14 19:52 Order name: CT Head Brain wo Cont; Complete Time: 21:04 [facility] 03/14 20:11 Order name: Chest Abd Pelvis Wo Con; Complete Time: 21:04 [facility] 03/14 20:19 Order name: Manual Differential; Complete Time: 22:14 [facility] 03/14 20:57 Order name: SARS-COV-2 RT PCR; Complete Time: 21:04 [facility] 03/14 21:11 Order name: ABO/RH no charge; Complete Time: 21:15 [facility] 03/14 22:10 Order name: Slides for Pathologist Review [facility] 03/14 23:20 Order name: Urine Dipstick--Ancillary (enter results) 03/14 23:35 Order name: Lactate Sepsis 2 HR Follow-up [facility] 03/14 19:45 Order name: EKG; Complete Time: 19:47 [facility] 03/14 19:45 Order name: Cardiac monitoring; Complete Time: 19:58 [facility] 03/14 19:45 Order name: EKG - Nurse/Tech; Complete Time: 19:58 [facility] 03/14 19:45 Order name: IV Saline Lock; Complete Time: 19:48 [facility] 03/14 19:45 Order name: Labs collected and sent; Complete Time: 19:48 [facility] 03/14 19:45 Order name: O2 Per Protocol; Complete Time: 19:48 [facility] 03/14 19:45 Order name: O2 Sat Monitoring; Complete Time: 19:48 [facility] 03/14 19:45 Order name: Urine Dipstick-Ancillary (obtain specimen); Complete Time: 23:19 [facility] 03/14 19:45 Order name: Blood Glucose Level; Complete Time: 21:28 [facility] 03/14 20:08 Order name: Sarmiento; Complete Time: 23:19 [facility] EC:10 Rate is 111 beats/min. Rhythm is regular. QRS [place] is Normal. MO interval is normal. ashley QRS interval is normal. QT interval is normal. No Q waves. T waves are Normal. No ST changes noted. Clinical impression: NSR w/ Non-specific ST/T Changes and No evidence of ischemia. Interpreted by me. Reviewed by me. Administered Medications: 20:45 Drug: NS 0.9% 500 ml Route: IV; Rate: bolus; Site: right jugular; jb4 21:15 Follow up: Response: No adverse reaction; IV Status: Completed infusion; IV Intake: jb4 500ml 20:45 Drug: Thiamine 100 mg Route: IV; Rate: bolus; Site: right jugular; jb4 20:50 Follow up: Response: No adverse reaction; IV Status: Completed infusion jb4 20:45 Drug: Pepcid 40 mg Route: IVP; Site: left jugular; jb4 21:15 Follow up: Response: No adverse reaction jb4 20:50 Drug: Flagyl 500 mg Volume: 100 ml; Route: IVPB; Rate: 200 ml/hr; Infused Over: 30 jb4 mins; Site: right jugular; 21:20 Follow up: Response: No adverse reaction; IV Status: Completed infusion; IV Intake: jb4 100ml 21:15 Drug: NS 0.9% 1000 ml Route: IV; Rate: 1 bolus; Site: right jugular; jb4 22:15 Follow up: Response: No adverse reaction; IV Status: Completed infusion; IV Intake: jb4 1000ml 21:23 Not Given (Other Intervention Used): ProTONIX 40 mg IVP once jb4 21:27 Not Given (Duplicate Order): Pepcid 20 mg IVP once jb4 21:32 Not Given (Duplicate Order): D5W with Sodium Bicarbonate 50 mEq/L 1000 ml IV at 125 ashley ml/hr once 21:42 Drug: Zosyn 3.375 grams Route: IVPB; Infused Over: 60 mins; Site: right jugular; jb4 22:42 Follow up: IV Status: Completed infusion jb4 22:45 Drug: D5W with Sodium Bicarbonate 100 mEq/L 1000 ml Route: IV; Rate: 125 ml/hr; Site: [facility] right jugular; 03/15 02:10 Follow up: Response: No adverse reaction; IV Status: Infusion continued upon transfer; [facility] IV Intake: 437ml 03/14 22:45 Drug: Lactulose 20 grams Volume: 30 ml; Route: PO; jb4 23:15 Follow up: Response: No adverse reaction jb4 23:15 Drug: Zofran (Ondansetron) 4 mg Route: IVP; Site: right jugular; jb4 23:45 Follow up: Response: No adverse reaction; Marked relief of symptoms; Nausea is decreasedjb4 23:17 Not Given (Other Intervention Used): Lactulose 60 grams 45 ml PO once jb4 23:20 Not Given (Other Intervention Used): NS 0.9% 1000 ml IV at 125 ml/hr continuous jb4 Disposition: 03/14/20 21:10 Transfer ordered to [facility]. Diagnosis are Abdominal tenderness, Elevated white blood cell count, Abnormal results of liver function studies - liver mass/maliganncy, Acute kidney failure, Anemia, unspecified, Pneumonia, unspecified organism - right base, Acute pancreatitis, Encephalopathy, unspecified, Severe sepsis. - Reason for transfer: Higher level of care. - Accepting physician is to ...... dr kahlil hinojosa. - Condition is Fair. - Problem is new. - Symptoms have improved. Signatures: Dispatcher [employer] EDTerrell Torres MD MD cha Bryson, James, RN RN jb4 Nick George, RN RN ll1 Corrections: (The following items were deleted from the chart) 20:08 19:46 CORONAVIRUS+MR.LAB.BRZ ordered. [facility] EDMS 20:11 19:47 Chest Abdomen Pelvis W Con+CT.RAD.BRZ ordered. [facility] EDMS 21:18 21:10 03/14/2020 21:10 Transfer ordered to [facility]. ashley Diagnosis is Abdominal tenderness; Elevated white blood cell count; Abnormal results of liver function studies - liver mass/maliganncy; Acute kidney failure; Anemia, unspecified; Pneumonia, unspecified organism - right base. Reason for transfer: Higher level of care. Accepting physician is to [facility] . liver team. Condition is Fair. Problem is new. Symptoms have improved. [facility] 22:21 21:18 03/14/2020 21:10 Transfer ordered to [facility]. ashley Diagnosis is Abdominal tenderness; Elevated white blood cell count; Abnormal results of liver function studies - liver mass/maliganncy; Acute kidney failure; Anemia, unspecified; Pneumonia, unspecified organism - right base; Acute pancreatitis. Reason for transfer: Higher level of care. Accepting physician is to [facility] . liver team. Condition is Fair. Problem is new. Symptoms have improved. [facility] 23:28 22:21 03/14/2020 21:10 Transfer ordered to [facility]. ashley Diagnosis is Abdominal tenderness; Elevated white blood cell count; Abnormal results of liver function studies - liver mass/maliganncy; Acute kidney failure; Anemia, unspecified; Pneumonia, unspecified organism - right base; Acute pancreatitis; Encephalopathy, unspecified; Severe sepsis. Reason for transfer: Higher level of care. Accepting physician is to [facility] . liver team. Condition is Fair. Problem is new. Symptoms have improved. [facility] 23:59 22:30 LACTATE+C.LAB.BRZ ordered. [facility] EDMS 03/15 00:02 03/14 23:28 03/14/2020 21:10 Transfer ordered to [facility]. ashley Diagnosis is Abdominal tenderness; Elevated white blood cell count; Abnormal results of liver function studies - liver mass/maliganncy; Acute kidney failure; Anemia, unspecified; Pneumonia, unspecified organism - right base; Acute pancreatitis; Encephalopathy, unspecified; Severe sepsis. Reason for transfer: Higher level of care. Accepting physician is to ...... dr kahlil hinojosa. Condition is Fair. Problem is new. Symptoms have improved. ashley 03/15 02:17 00:02 03/14/2020 21:10 Transfer ordered to [facility]. Diagnosis is jb4 Abdominal tenderness; Elevated white blood cell count; Abnormal results of liver function studies - liver mass/maliganncy; Acute kidney failure; Anemia, unspecified; Pneumonia, unspecified organism - right base; Acute pancreatitis; Encephalopathy, unspecified; Severe sepsis. Reason for transfer: Higher level of care. Accepting physician is to ...... dr kahlil hinojosa. Condition is Fair. Problem is new. Symptoms have improved. ashley
--- NOTE | 2020-03-14 21:11 | ER ---
Nurse's Notes [facility] Name: Prem West Jr Age: 69 yrs Sex: Male : 1950 Arrival Date: 03/14/2020 Time: 18:21 Bed 15 Private MD: Diagnosis: Abdominal tenderness;Elevated white blood cell count;Abnormal results of liver function studies-liver mass/maliganncy;Acute kidney failure;Anemia, unspecified;Pneumonia, unspecified organism-right base;Acute pancreatitis;Encephalopathy, unspecified;Severe sepsis Presentation: 03/14 18:47 Chief complaint: Patient states: Sent by Dr. Means for infection in the blood, and ll1 needs IV antibiotics. Has liver CA. Coronavirus screen: Client denies travel out of the [place] in the last 14 days. At this time, the client does not indicate any symptoms associated with coronavirus-19. Ebola Screen: Patient denies travel to an Ebola-affected area in the 21 days before illness onset. Initial Sepsis Screen: Does the patient meet any 2 criteria? Mean Arterial Pressure (MAP) < 65. Altered Mental Status. HR > 90 bpm. No. Patient's initial sepsis screen is negative. Does the patient have a suspected source of infection? Yes: Acute abdominal pain. Risk Assessment: Do you want to hurt yourself or someone else? Patient reports no desire to harm self or others. Onset of symptoms was February 16, 2020. 18:47 Method Of Arrival: Wheelchair ll1 18:47 Acuity: CHANTE 2 ll1 Historical: - Allergies: 18:47 No Known Allergies; ll1 - PMHx: 18:47 Diabetes - NIDDM; Hypertension; liver CA; ll1 - PSHx: 18:47 None; ll1 - Immunization history:: Flu vaccine is up to date. - Social history:: Smoking status: Patient/guardian denies using tobacco, the patient reports quitting approximately 1 years ago. - Family history:: not pertinent. Screenin:00 Abuse screen: Denies threats or abuse. Nutritional screening: No deficits noted. jb4 Tuberculosis screening: No symptoms or risk factors identified. Fall Risk IV access (20 points). Mental Status- Overestimates/Forgets Limitations (15 pts.). Total De La Cruz Fall Scale indicates Low Risk Score (25-44 pts). Fall prevention measures have been instituted. Side Rails Up X 2 Placed close to Nursing Station Frequent Obs/Assesments occuring. Assessment: 19:00 General: Appears in no apparent distress. uncomfortable, Behavior is calm, cooperative. jb4 Pain: Complains of pain in abdomen. Neuro: Level of Consciousness is awake, alert, obeys commands, Oriented to person, place, time, Becomes confused as to what is going on and is forgetful.. Cardiovascular: Patient's skin is warm and dry. Respiratory: Airway is patent Respiratory effort is even, unlabored, Respiratory pattern is regular, symmetrical. GI: No signs and/or symptoms were reported involving the gastrointestinal system. : No signs and/or symptoms were reported regarding the genitourinary system. EENT: No signs and/or symptoms were reported regarding the EENT system. Derm: Skin is intact, Skin is dry, Skin is jaundiced, Skin temperature is warm. Musculoskeletal: Circulation, motion, and sensation intact. 20:00 Reassessment: Patient appears in no apparent distress at this time. Patient and/or jb4 family updated on plan of care and expected duration. Pain level reassessed. Patient is alert, oriented x 3, equal unlabored respirations, skin warm/dry/pink. 20:40 Reassessment: Provider notified that Protonix 40mg IVP is not currently available, jb4 received verbal order for Pepcid 40mg IVP. Verified order with provider, see MAR for orders. 21:00 Reassessment: Patient appears in no apparent distress at this time. Patient and/or jb4 family updated on plan of care and expected duration. Pain level reassessed. Patient is alert, oriented x 3, equal unlabored respirations, skin warm/dry/pink. 22:00 Reassessment: Patient appears in no apparent distress at this time. Patient and/or jb4 family updated on plan of care and expected duration. Pain level reassessed. Patient is alert, oriented x 3, equal unlabored respirations, skin warm/dry/pink. 23:00 Reassessment: Patient appears in no apparent distress at this time. Patient and/or jb4 family updated on plan of care and expected duration. Pain level reassessed. Patient is alert, oriented x 3, equal unlabored respirations, skin warm/dry/pink. PT remains forgetful of his environment and what is going on around him. continues to need to be reminded. provider notified that after Sarmiento insertion pt began to have peg red bloody urine. No new orders at this time. 03/15 00:00 Reassessment: Patient appears in no apparent distress at this time. No changes from jb4 previously documented assessment. Patient and/or family updated on plan of care and expected duration. Pain level reassessed. Patient is alert, oriented x 3, equal unlabored respirations, skin warm/dry/pink. 00:22 Reassessment: Received verbal consent for transfer from , Diana ([phone]). jb4 01:43 Reassessment: Patient appears in no apparent distress at this time. Patient and/or jb4 family updated on plan of care and expected duration. Pain level reassessed. PT is resting in bed with eyes closed, respirations are even and unlabored with no s/s of pain or distress noted. 02:08 Reassessment: ER physician informed that the patient still has peg red bloody urine, jb4 no new orders given. EMS informed of conversation with physician. Transferred to EMS stretcher. Vital Signs: 03/14 18:47 BP 110 / 46; Pulse 111; Resp 18; Temp 98.4; Pulse Ox 100% ; Weight 107.05 kg; Height 5 ll1 ft. 7 in. (170.18 cm); Pain 8/10; 21:00 BP 111 / 42; Pulse 117; Resp 16; Pulse Ox 100% on R/A; jb4 22:00 BP 115 / 53; Pulse 108; Resp 14; Pulse Ox 100% on R/A; jb4 23:00 BP 133 / 56; Pulse 115; Resp 15; Pulse Ox 98% on R/A; jb4 03/15 00:00 BP 113 / 49; Pulse 106; Resp 18; Pulse Ox 95% on R/A; jb4 01:00 BP 127 / 55; Pulse 113; Resp 16; Pulse Ox 95% on R/A; jb4 02:00 BP 127 / 58; Pulse 110; Resp 16; Pulse Ox 96% on R/A; jb4 03/14 18:47 Body Mass Index 36.96 (107.05 kg, 170.18 cm) ll1 ED Course: 03/14 18:21 Patient arrived in ED. rg4 18:46 Arm band placed on. ll1 18:49 Triage completed. ll1 19:00 Patient has correct armband on for positive identification. Placed in gown. Bed in low jb4 position. Call light in reach. Side rails up X 1. cafeteria monitor on. Pulse ox on. NIBP on. 19:09 Terrell Matias MD is Attending Physician. ashley 19:11 Madhu Richardson, RN is Primary Nurse. jb4 20:07 COVID swab sent to lab. jp3 20:19 Chest Abd Pelvis Wo Con In Process Unspecified. EDMS 20:19 CT Head Brain wo Cont In Process Unspecified. EDMS 20:21 Notified ED physician of a critical lab result(s). WBC 23.5, to . sg 20:26 XRAY Chest (1 view) In Process Unspecified. EDMS 20:46 Notified ED physician of a critical lab result(s). Lactate of 4.1. sg 22:42 Sarmiento cath inserted, using sterile technique, 18 Fr., by pr, balloon inflated, to jb4 gravity drainage, urine specimen collected. returned cloudy urine. Patient tolerated well. 03/15 02:09 No provider procedures requiring assistance completed. Patient transferred, IV remains jb4 in place. Administered Medications: 03/14 20:45 Drug: NS 0.9% 500 ml Route: IV; Rate: bolus; Site: right jugular; jb4 21:15 Follow up: Response: No adverse reaction; IV Status: Completed infusion; IV Intake: jb4 500ml 20:45 Drug: Thiamine 100 mg Route: IV; Rate: bolus; Site: right jugular; jb4 20:50 Follow up: Response: No adverse reaction; IV Status: Completed infusion jb4 20:45 Drug: Pepcid 40 mg Route: IVP; Site: left jugular; jb4 21:15 Follow up: Response: No adverse reaction jb4 20:50 Drug: Flagyl 500 mg Volume: 100 ml; Route: IVPB; Rate: 200 ml/hr; Infused Over: 30 jb4 mins; Site: right jugular; 21:20 Follow up: Response: No adverse reaction; IV Status: Completed infusion; IV Intake: jb4 100ml 21:15 Drug: NS 0.9% 1000 ml Route: IV; Rate: 1 bolus; Site: right jugular; jb4 22:15 Follow up: Response: No adverse reaction; IV Status: Completed infusion; IV Intake: jb4 1000ml 21:23 Not Given (Other Intervention Used): ProTONIX 40 mg IVP once jb4 21:27 Not Given (Duplicate Order): Pepcid 20 mg IVP once jb4 21:32 Not Given (Duplicate Order): D5W with Sodium Bicarbonate 50 mEq/L 1000 ml IV at 125 ashley ml/hr once 21:42 Drug: Zosyn 3.375 grams Route: IVPB; Infused Over: 60 mins; Site: right jugular; jb4 22:42 Follow up: IV Status: Completed infusion jb4 22:45 Drug: D5W with Sodium Bicarbonate 100 mEq/L 1000 ml Route: IV; Rate: 125 ml/hr; Site: jb right jugular; 03/15 02:10 Follow up: Response: No adverse reaction; IV Status: Infusion continued upon transfer; jb4 IV Intake: 437ml 03/14 22:45 Drug: Lactulose 20 grams Volume: 30 ml; Route: PO; jb4 23:15 Follow up: Response: No adverse reaction jb4 23:15 Drug: Zofran (Ondansetron) 4 mg Route: IVP; Site: right jugular; jb4 23:45 Follow up: Response: No adverse reaction; Marked relief of symptoms; Nausea is decreasedjb4 23:17 Not Given (Other Intervention Used): Lactulose 60 grams 45 ml PO once jb4 23:20 Not Given (Other Intervention Used): NS 0.9% 1000 ml IV at 125 ml/hr continuous jb4 Intake: 21:15 IV: 500ml; Total: 500ml. jb4 21:20 IV: 100ml; Total: 600ml. jb4 22:15 IV: 1000ml; Total: 1600ml. jb4 03/15 02:10 IV: 437ml; Total: 2037ml. jb4 Outcome: 03/14 21:10 ER care complete, transfer ordered by MD. ramirez 03/15 02:09 Transferred by ground EMS EMS. to [facility], Transfer form completed. jb4 X-rays sent w/ patient. Condition: stable Discharge instructions given to family, Instructed on the need for transfer, Demonstrated understanding of instructions. 02:17 Patient left the ED. jb4 Signatures: Dispatcher [employer] EDChas Moise RN RN sg Anderson, Corey, MD MD cha Garcia, Rubi rg4 Madhu Richardson, RN RN jb4 Jatin Boyer jp3 Nick George, RN RN ll1 Corrections: (The following items were deleted from the chart) 01:51 03/14 23:00 Reassessment: Patient appears in no apparent distress at this time. Patient jb4 and/or family updated on plan of care and expected duration. Pain level reassessed. Patient is alert, oriented x 3, equal unlabored respirations, skin warm/dry/pink. PT remains forgetful of his environment and what is going on around him. continues to need to be reminded. jb4
[2020-03-14] MEDS ORDERED: LACTULOSE 20 GM/30 ML UCUP ONE (21:48)
[2020-03-14] MEDS ORDERED: PIPER/TAZO/NS 3.375gm 3.375 GM/100 ML BAG ONE (21:48)
[2020-03-14] MEDS ORDERED: NA CHLORIDE 0.9% 500 ML ONE (21:48)
[2020-03-14] MEDS ORDERED: SODIUM BICARB 50 MEQ/50ML VIAL ONE (22:02)
[2020-03-14] MEDS ORDERED: D5W 0 ML IV ONE (22:03)
[2020-03-14] MEDS ORDERED: D5W 1,000 ML IV ONE (22:08)
[2020-03-14 22:10] LABS: Blood Morphology Comment NOTED (NOT SEEN); Platelet Estimate DECR; Polychromasia 2+; Teardrop Cell 2+
[2020-03-14] MEDS ORDERED: ONDANSETRON 4 MG/2 ML VIAL ONE (23:11)
[2020-03-14 23:37] LABS: Urine Glucose NEGATIVE (NEG); Urine Specific Gravity 1.015 (1.005-1.030)
[2020-03-14 23:38] LABS: Urine Blood 3+ (NEG); Urine Protein 1+ (NEG); Urine pH 5.5 (5.0-7.0)
[2020-03-15 02:23] VITALS: TEMP 98.4
[2020-03-15 02:31] VITALS: BP 127/58; O2SAT 96
--- NOTE | 2020-03-15 08:14 | RAD REPORT ---
EXAM DESCRIPTION: RAD - Chest Single View - 03/14/2020 8:30 pm CLINICAL HISTORY: COUGH, liver cancer history, infection of unknown origin COMPARISON: CT chest March 14, two view chest October 2017 TECHNIQUE: AP portable chest image was obtained 03/14/2020 8:30 pm . FINDINGS: Lung volumes are reduced. Patchy right base opacification is probably atelectasis. No defi nitive infiltrate identifiable. No failure or volume overload. Mediastinum is accentuated by slight r otation and shallow inspiration. Heart and vasculature are normal. No measurable pleural effusion and no pneumothorax. No acute bony abnormality seen. No acute aortic findings suspected. IMPRESSION: No acute cardiopulmonary process. No significant change from comparison study.
--- NOTE | 2020-03-15 16:07 | EKG ---
Test Date: 2020-03-14 Test Time: 19:53:56 Instrument Technologist: ANDREWS MEASUREMENT RESULTS: Intervals: Rate: 111 IN: 154 QRSD: 86 QT: 346 QTc: 470 Gilbert: P: 54 IN: 154 QRS: 13 T: 63 INTERPRETIVE STATEMENTS: Sinus tachycardia with fusion complexes Nonspecific ST abnormality Abnormal ECG Compared to ECG 02/18/2020 13:40:28 Fusion complex(es) now present ST (T wave) deviation now present Ventricular premature complex(es) no longer present Electronically Signed On 03-15-20 16:05:32 GENERAL MACHINE OPERATOR by Kosta Ruiz
== END 2020-03-15 02:17 | disposition short-term general hospital (02) ==
LOC: ER 18:18
DX: N17.9 Acute kidney failure, unspecified (principal); R65.20 Severe sepsis without septic shock; G93.41 Metabolic encephalopathy; J18.9 Pneumonia, unspecified organism; C22.9 Malignant neoplasm of liver, not specified as primary or secondary; K85.90 Acute pancreatitis without necrosis or infection, unspecified; D64.9 Anemia, unspecified; Z20.828 Contact with and (suspected) exposure to other viral communicable diseases; R10.819 Abdominal tenderness, unspecified site; I10 Essential (primary) hypertension
CPT/HCPCS: 93005; 87040 ×2; 87088; 85025; 87086; 80048; 36415; 82140; 86900; 83735; 86850; 85610; 86901; 80076; 83605 ×2; 81003; 84484; 83690; 83880; 70450; 71250; 74176; 71045; 51702; 99285; U0003; J3411; J2543; J7040; J7030; J2405; 82105